=== PATIENT | male | born 1985 | race American Indian/Alaskan Native ===

== ENCOUNTER 2018-10-17 22:41 | Emergency (ER) | payer SELFPAY ==
[2018-10-17 23:01] VITALS: BP 138/92
[2018-10-18] MEDS ORDERED: XYLOCAINE 2% INFILTRATI ONE (02:54)
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
[2018-10-18] MEDS ORDERED: BOOSTRIX IM ONE (04:28)
[2018-10-18] MEDS ORDERED: HYDROGEN PEROXIDE ONE (04:53)
[2018-10-18] MEDS ORDERED: HYDROGEN PEROXIDE TP ONE (04:54)
== END 2018-10-18 05:05 | disposition home or self-care (01) ==
LOC: EDBD → ED 22:41
DX: S61.412A Laceration without foreign body of left hand, initial encounter (principal); W26.0XXA Contact with knife, initial encounter; Y93.89 Activity, other specified; Y92.090 Kitchen in other non-institutional residence as the place of occurrence of the external cause; Y99.8 Other external cause status
CPT/HCPCS: 90471; 90715